=== PATIENT | female | born 2005 | race Caucasian/White ===

== ENCOUNTER 2024-03-30 10:55 | Emergency (ER) | payer OTHER ==
[2024-03-30 11:34] VITALS: TEMP 97.3
--- NOTE | 2024-03-30 11:46 | ERPHSYRPT ---
- History of Present Illness Time Seen by Provider: 03/30/24 11:22 Source: patient Exam Limitations: no limitations Patient Subjective Stated Complaint: "I was put on an iron supplement for my pregancy and blood levels. I started it last night and noticed today I have a ra sh and I've been itchy. My face is swollen too". Triage Nursing Assessment: Pt presents to ER with complaints of rash and swollen face after starting new medication, iron last night at 7pm. Pt noticed rash today at 7am. Pt is 33 weeks without any complications, denies taking prenatals. Pt is alert and oriented x 3. Skin is pink, warm, and slight redness under right breasts and spots on legs. Complains of itching all over. Pt respirations are easy and unlabored. Denies any futher concerns at this time. Physician History: 18 years old 1 para 0 at 33 weeks gestation with history of related anemia, started on ferrous sulfate presented in the ER with itching and burning sensation with rash all over started this morning when she woke up. Patient reports she took her ferrous sulfate last night. Denies any difficulty breathing. No throat closing sensation or choking sensation. Denies any abdominal/pelvic pain/cramping. movements as usual. She has taken 50 mg Benadryl at home with no significant relief. Allergies/Adverse Reactions: paroxetine [From Paxil] Allergy (Intermediate, Verified 03/30/24 11:25) Rash blueberry Allergy (Mild, Verified 03/30/24 11:25) iron Allergy (Mild, Verified 03/30/24 11:25) Rash Home Medications: Amoxicillin 875 mg PO BID 03/30/24 [History] Ferrous Sulfate [Ferosul] 325 mg PO DAILY 03/30/24 [History] Hx Tetanus, Diphtheria Vaccination/Date Given: No Hx Influenza Vaccination/Date Given: No Hx Pneumococcal Vaccination/Date Given: No Immunizations Up to Date: No Travel Risk - International Travel Have you traveled outside of the country in past 3 weeks: No - Emerging Infectious Disease Are you exhibiting symptoms associated with any current EIDs: No - Review of Systems Constitutional: No Symptoms Eyes: No Symptoms Ears, Nose, & Throat: No Symptoms Respiratory: No Symptoms Cardiac: No Symptoms Abdominal/Gastrointestinal: No Symptoms Genitourinary Symptoms: Musculoskeletal: No Symptoms Skin: Rash, Skin Lesions Neurological: No Symptoms Psychological: No Symptoms Endocrine: No Symptoms Immunological/Allergic: No Symptoms - Past Medical History Pertinent Past Medical History: No Neurological History: No Pertinent History ENT History: No Pertinent History Cardiac History: No Pertinent History Respiratory History: No Pertinent History Endocrine Medical History: No Pertinent History Musculoskeletal History: No Pertinent History GI Medical History: No Pertinent History History: No Pertinent History Psycho-Social History: No Pertinent History Female Reproductive Disorders: No Pertinent History - Past Surgical History Past Surgical History: Yes Neuro Surgical History: No Pertinent History Cardiac: No Pertinent History Respiratory: No Pertinent History Gastrointestinal: No Pertinent History Genitourinary: No Pertinent History Musculoskeletal: Orthopedic Surgery Female Surgical History: No Pertinent History Other Surgical History: wisdom teeth and carpal tunnel - Female History Hx Last Menstrual Period: 07/16/24 Hx Now: Yes Gestational Age: 33 weeks - Social History Smoking Status: Current every day smoker Exposure to second hand smoke: No Drug Use: none - Social Determinants of Health Will the patient participate in the screening: Yes Do you worry about a steady place to live?: No Do you have any problems with any of the following?: No known problems In the past 12 months,have you had to go without utilities?: No Transportation Issues: No Has anyone in your support network made you feel unsafe?: No Have you or anyone in your house had to go without enough: No - Nursing Vital Signs Nursing Vital Signs: Initial Vital Signs Temperature 97.3 F 03/30/24 11:26 Pulse Rate 106 H 03/30/24 11:26 Respiratory Rate 18 03/30/24 11:26 Blood Pressure 132/93 03/30/24 11:26 O2 Sat by Pulse Oximetry 97 03/30/24 11:26 Pain Scale Pain Intensity 0 - Physical Exam General Appearance: no apparent distress, alert Eye Exam: eyes nml inspection Ears, Nose, Throat Exam: normal ENT inspection Neck Exam: normal inspection, non-tender, supple, full range of motion Respiratory Exam: normal breath sounds, lungs clear Cardiovascular Exam: regular rate/rhythm, normal heart sounds Gastrointestinal/Abdomen Exam: soft, normal bowel sounds, other (Gravid uterus), No tenderness Extremity Exam: normal inspection, normal range of motion Neurologic Exam: alert, oriented x 3, cooperative, 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 Blanchable. Nontender.) SpO2 Interpretation: normal SpO2: 98 O2 Delivery: Room Air Ordered Tests: Medication Summary Discontinued Medications Generic Name Dose Route Start Last Admin Trade Name Constantino PRN Reason Stop Dose Admin Methylprednisolone Sodium 0 mg 03/30/24 11:26 03/30/24 12:19 Succinate 125 mg/ Sterile IV 03/30/24 11:27 125 mg Water 2 ml STAT ONE Administration Diphenhydramine HCl 25 mg 03/30/24 11:26 03/30/24 12:19 Diphenhydramine Hcl 50 Mg/Ml Vial IV 03/30/24 11:27 25 mg STAT ONE Administration Diphenhydramine HCl Confirm 03/30/24 12:18 Diphenhydramine Hcl 50 Mg/Ml Vial Administered 03/30/24 12:19 Dose 50 mg .ROUTE .STK-MED ONE Famotidine 20 mg 03/30/24 11:26 03/30/24 12:19 Famotidine 20 Mg/1 Vial IV 03/30/24 11:27 20 mg STAT ONE Administration Famotidine Confirm 03/30/24 12:18 Famotidine 20 Mg/1 Vial Administered 03/30/24 12:19 Dose 20 mg IV .STK-MED ONE Methylprednisolone Sodium Succinate Confirm 03/30/24 12:18 Methylprednis Sod Succ 125 Mg/2 Ml Vial Administered 03/30/24 12:19 Dose 125 mg .ROUTE .STK-MED ONE Sterile Water Confirm 03/30/24 12:17 Water For Injection,Sterile 10 Ml Vial Administered 03/30/24 12:18 Dose 10 ml IJ .STK-MED ONE Lab/Rad Data: Laboratory Result Diagrams 03/30/24 11:48 03/30/24 11:48 Laboratory Results 03/30/24 03/30/24 03/30/24 Range/Units 12:52 11:48 11:48 WBC 5.8 (3.98-10.04) x10^3/uL RBC 3.65 L (3.93-5.22) x10^6/uL Hgb 9.6 L (11.2-15.7) g/dL Hct 28.7 L (34.1-44.9) % MCV 78.6 L (79.4-94.8) fL MCH 26.3 (25.6-32.2) pg MCHC 33.4 (32.2-35.5) g/dL RDW 12.0 (11.7-14.4) % Plt Count 249 (182-369) x10^3/uL MPV 8.9 L (9.4-12.3) fL Gran % 63.0 (34.0-71.1) % Immature Gran % (Auto) 0.5 H (0.001-0.429) % Nucleat RBC Rel Count 0.0 (0.00-0.2) % Eos # (Auto) 0.04 (0.04-0.36) x10^3/uL Immature Gran # (Auto) 0.03 (0.001-0.031) x10^3u/L Absolute Lymphs (auto) 1.47 (1.18-3.74) x10^3/uL Absolute Monos (auto) 0.61 (0.24-0.86) x10^3/uL Absolute Nucleated RBC 0.00 (0.00-0.012) x10^3u/L Lymphocytes % 25.2 (19.3-51.7) % Monocytes % 10.4 (4.7-12.5) % Eosinophils % 0.7 (0.7-5.8) % Basophils % 0.2 (0.1-1.2) % Absolute Granulocytes 3.68 (1.56-6.13) x10^3/uL Basophils # 0.01 (0.01-0.08) x10^3/uL Sodium 136 (135-145) mmol/L Potassium 3.6 (3.5-5.1) mmol/L Chloride 107 (98-107) mmol/L Carbon Dioxide 22 (22-30) mmol/L Anion Gap 10.2 (5-15) MEQ/L BUN 7 (7-17) mg/dL Creatinine 0.49 L (0.52-1.04) mg/dL Estimated GFR 138.3 ML/MIN Glucose 81 (74-106) mg/dL Uric Acid 4.3 (2.6-6.0) mg/dL Calcium 9.2 (8.4-10.2) mg/dL Total Bilirubin 0.30 (0.2-1.3) mg/dL AST 28 (14-36) U/L ALT 28 (0-35) U/L Alkaline Phosphatase 121 (38-126) U/L Serum Total Protein 6.6 (6.3-8.2) g/dL Albumin 3.4 L (3.5-5.0) g/dL Urine Color Yellow (Yellow) Urine Appearance Cloudy A (Clear) Urine pH 7.0 (4.6-8.0) Ur Specific [place] 1.010 (1.005-1.030) Urine Protein Negative (Negative) Urine Glucose (UA) Negative (Negative) mg/dL Urine Ketones Negative (Negative) Urine Blood Negative (Negative) Urine Nitrite Negative (Negative) Urine Bilirubin Negative (Negative) Urine Urobilinogen 1.0 A (0.2) mg/dL Ur Leukocyte Esterase Trace A (Negative) Urine Microscopic RBC NONE (0-5) /HPF Urine Microscopic WBC 3-5 (0-5) /HPF Ur Epithelial Cells Many A (None Seen) /HPF Urine Bacteria Rare A (None Seen) /HPF Urine Culture Reflexed NO (NO) - Progress Progress: improved, re-examined Progress Note: 03/30/24 14:02 18 years old 1 para 0 at 33 weeks is evaluated for rash/itching/allergic reaction after taking ferrous sulfate. Patient has no difficulty breathing, clear lungs to auscultation. Normal oropharynx/tongue swelling/floor of mouth swelling. She is given Solu-Medrol Benadryl and Pepcid along with fluid, on reevaluations her rash is resolved. I have obtained her baseline labs with normal white count, fairly unremarkable chemistries and no definite UTI. Patient blood pressure was borderline elevated but has no other objective findings of preeclampsia, on reevaluation blood pressure is improved in 110s and 120s. I recommended stopping ferrous sulfate and discussed with her OB . We will give her Benadryl and Pepcid to go home and outpatient follow-up recommended. Discussed signs symptoms of worsening needing return to ER which she seems understanding. Stable for discharge. heart tones 148 03/30/24 14:04 Counseled pt/family regarding: lab results, diagnosis, need for follow-up Medical Desision Making - Independent Historian Additional History obtained from: Mother - Diagnostic Testing Diagnostic test were ordered, analyzed, and reviewed by me: Yes - Risk of complications The pt has a mod risk of morbidity or mortality based on: Need for prescription drug management - Departure Departure Disposition: Home Clinical Impression: Allergic reaction, Condition: Stable Critical Care Time: No Referrals: SHANNAN RAM MD [Primary Care Provider] - Follow up with PCP 1 day BRENDA FROST [NON-STAFF PHY W/O PRIVILEGES] - Follow up other (For appointment) Instructions: Leann Additional Instructions: Follow-up with primary care/primary OB for reevaluation. Take Benadryl/Pepcid as needed. Return to ER for worsening rash or if having difficulty breathing, choking sensation, feeling dizzy lightheaded etc.
[2024-03-30 11:53] LABS: Absolute Neutrophil Ct (ANC) 3.68 x10^3/uL (1.56-6.13); BASOPHIL % 0.2 % (0.1-1.2); Basophil (Absolute #) 0.01 x10^3/uL (0.01-0.08); Eosinophil % 0.7 % (0.7-5.8); Eosinophil (Absolute #) 0.04 x10^3/uL (0.04-0.36); Hematocrit 28.7 % (34.1-44.9); Hemoglobin 9.6 g/dL (11.2-15.7); IMMATURE GRAN # 0.03 x10^3u/L (0.001-0.031); IMMATURE GRAN % 0.5 % (0.001-0.429); Lymphocyte (Absolute #) 1.47 x10^3/uL (1.18-3.74); Lymphocytes % 25.2 % (19.3-51.7); Mean Cell Volume 78.6 fL (79.4-94.8); Mean Corpuscular Hemoglobin 26.3 pg (25.6-32.2); Mean Corpuscular Hgb Concent. 33.4 g/dL (32.2-35.5); Mean Platelet Volume 8.9 fL (9.4-12.3); Monocyte (Absolute #) 0.61 x10^3/uL (0.24-0.86); Monocytes % 10.4 % (4.7-12.5); Platelet Count 249 x10^3/uL (182-369); Red Blood Count 3.65 x10^6/uL (3.93-5.22); White Blood Count 5.8 x10^3/uL (3.98-10.04)
[2024-03-30 12:09] LABS: ALBUMIN 3.4 g/dL (3.5-5.0); ANION GAP 10.2 MEQ/L (5-15); BILIRUBIN,TOTAL 0.3 mg/dL (0.2-1.3); Calcium 9.2 mg/dL (8.4-10.2); Creatinine 1 0.49 mg/dL (0.52-1.04); EST GLOMERULAR FILTRATION RATE 138.3 ML/MIN; Potassium 3.6 mmol/L (3.5-5.1); Total Protein 6.6 g/dL (6.3-8.2); Uric Acid 4.3 mg/dL (2.6-6.0)
[2024-03-30] MEDS ORDERED: Sterile H2O 10 ml IJ ONE (12:17)
[2024-03-30] MEDS ORDERED: BENADRYL 50 MG/ML ONE (12:18)
[2024-03-30] MEDS ORDERED: solu-MEDROL ONE (12:18)
[2024-03-30] MEDS ORDERED: Pepcid 20 MG VIAL IV ONE (12:18)
[2024-03-30] MEDS: BENADRYL 50 MG/ML IV ONE (12:19)
[2024-03-30] MEDS: Pepcid 20 MG VIAL IV ONE (12:19)
[2024-03-30] MEDS: solu-MEDROL 125 MG, Sterile H2O 10 ml 2 ML IV ONE (12:19)
[2024-03-30 12:27] VITALS: RESP 16
[2024-03-30 13:10] LABS: Appearance Cloudy (Clear); Bilirubin Negative (Negative); Blood Negative (Negative); Glucose, Urine Negative (Negative); Ketones Negative (Negative); Leukocyte Esterase Trace (Negative); Nitrite Negative (Negative); Protein,Urine Dip Negative (Negative)
[2024-03-30 13:12] VITALS: BP 120/79; PULSE 88
[2024-03-30 13:27] LABS: ADD URINE CULTURE? NO (NO); Bacteria Rare /HPF (None Seen); Epithelial Cells Many /HPF (None Seen)
[2024-03-30 14:07] VITALS: O2SAT 98
== END 2024-03-30 14:19 | disposition home or self-care (01) ==
LOC: ED 10:55
DX: O9A.213 Injury, poisoning and certain other consequences of external causes complicating pregnancy, third trimester (principal); L27.0 Generalized skin eruption due to drugs and medicaments taken internally; T45.4X5A Adverse effect of iron and its compounds, initial encounter; Z3A.33 33 weeks gestation of pregnancy; Z79.899 Other long term (current) drug therapy; Z72.0 Tobacco use
CPT/HCPCS: 36000; 36415; 80053; 81001; 84550; 85025; 96374; 96375; 99284; J1200; J2919

== ENCOUNTER 2024-11-16 23:25 | Emergency (ER) | payer OTHER ==
[2024-11-16 23:35] VITALS: BP 146/86; RESP 18; TEMP 97.6; O2SAT 99
--- NOTE | 2024-11-16 23:50 | ERPHSYRPT ---
- History of Present Illness Source: patient Exam Limitations: no limitations Patient Subjective Stated Complaint: mouth pain Triage Nursing Assessment: patient states had gengivitis test wednesday and since then your mouth has beeen in pain but this last few hours its getting progressively worse. Physician History: Patient has pain in her gums. She recently underwent a gingivitis test where they put some probes up by her gums. I wonder if they might have introduced some infection. She is not have any fever or chills. The symptoms of gotten generally and gradually worse over the last 2 to 3 days. She has no other complaints at this time. There is no edema. There is no trismus or Ludewig's angina or anything like that it is in her upper gums around her middle teeth. Allergies/Adverse Reactions: paroxetine [From Paxil] Allergy (Intermediate, Verified 03/30/24 11:25) Rash blueberry Allergy (Mild, Verified 03/30/24 11:25) iron Allergy (Mild, Verified 03/30/24 11:25) Rash Hx Tetanus, Diphtheria Vaccination/Date Given: No Hx Influenza Vaccination/Date Given: No Hx Pneumococcal Vaccination/Date Given: No Travel Risk - International Travel Have you traveled outside of the country in past 3 weeks: No - Emerging Infectious Disease Are you exhibiting symptoms associated with any current EIDs: No - Review of Systems Constitutional: No Symptoms Eyes: No Symptoms Respiratory: No Symptoms - Past Medical History Pertinent Past Medical History: No Neurological History: No Pertinent History ENT History: No Pertinent History Cardiac History: No Pertinent History Respiratory History: No Pertinent History Endocrine Medical History: No Pertinent History Musculoskeletal History: No Pertinent History GI Medical History: No Pertinent History History: No Pertinent History Psycho-Social History: No Pertinent History Female Reproductive Disorders: No Pertinent History - Past Surgical History Past Surgical History: Yes Neuro Surgical History: No Pertinent History Cardiac: No Pertinent History Respiratory: No Pertinent History Gastrointestinal: No Pertinent History Genitourinary: No Pertinent History Musculoskeletal: Orthopedic Surgery Female Surgical History: No Pertinent History Other Surgical History: wisdom teeth and carpal tunnel - Female History Hx Last Menstrual Period: 10/2024 Hx Now: No - Social History Smoking Status: Never smoker Drug Use: none - Social Determinants of Health Will the patient participate in the screening: Yes Do you worry about a steady place to live?: No Do you have any problems with any of the following?: No known problems In the past 12 months,have you had to go without utilities?: No Transportation Issues: No Has anyone in your support network made you feel unsafe?: No Have you or anyone in your house had to go w/o enough food: No - Nursing Vital Signs Nursing Vital Signs: Initial Vital Signs Temperature 97.6 F 11/16/24 23:26 Pulse Rate 81 11/16/24 23:26 Respiratory Rate 18 11/16/24 23:26 Blood Pressure 146/86 11/16/24 23:26 O2 Sat by Pulse Oximetry 99 11/16/24 23:26 Pain Scale Pain Intensity 9 - Physical Exam General Appearance: no apparent distress Eye Exam: bilateral eye: normal inspection, PERRL, EOMI Ear Exam: bilateral ear: auricle normal, canal normal, TM normal Nasal Exam: normal inspection Throat Exam: normal Neck Exam: normal inspection SpO2: 99 - Progress Progress Note: Patient was stable throughout stay. I went to treat her for gingivitis and we will give her clindamycin. I am also going to give her a couple [place] to take home. She is also to ice the area. 11/16/24 23:46 - Departure Departure Disposition: Home Clinical Impression: Gingivitis Condition: Stable Critical Care Time: No Referrals: SHANNAN RAM MD [Primary Care Provider] - Follow up/PCP as directed Instructions: Gingivitis (DC)
[2024-11-16] MEDS ORDERED: NORCO 5/325 MG ONE (23:52)
[2024-11-16] MEDS ORDERED: CLEOCIN 150 MG CAPSULE ONE (23:52)
[2024-11-16] MEDS: CLEOCIN 150 MG CAPSULE PO ONE (23:56)
[2024-11-16] MEDS: NORCO 5/325 MG PO ONE (23:56)
[2024-11-16 23:58] VITALS: PULSE 82
== END 2024-11-16 23:59 | disposition home or self-care (01) ==
LOC: ED 23:25
DX: K05.10 Chronic gingivitis, plaque induced (principal)
CPT/HCPCS: 99282; 99283; A9270-GY

== ENCOUNTER 2024-11-18 14:26 | Emergency (ER) | payer OTHER ==
--- NOTE | 2024-11-18 15:02 | ERPHSYRPT ---
- History of Present Illness Time Seen by Provider: 11/18/24 14:58 Source: patient Physician History: c/o mouth pain. for 3-4 days Patient is 19-year-old female came to the emergency room with severe mouth pain especially related to her lower teeth on the right side patient was seen in ER 2 to 3 days ago and at that time she was given an antibiotic shot and clindamycin was started which patient just started today. Patient was recently seen by dentist and was diagnosed with gingivitis. Timing/Duration: day(s) (3-4 days) Associated Symptoms: denies symptoms Allergies/Adverse Reactions: paroxetine [From Paxil] Allergy (Intermediate, Verified 03/30/24 11:25) Rash blueberry Allergy (Mild, Verified 03/30/24 11:25) iron Allergy (Mild, Verified 03/30/24 11:25) Rash Hx Tetanus, Diphtheria Vaccination/Date Given: No Hx Influenza Vaccination/Date Given: No Hx Pneumococcal Vaccination/Date Given: No Travel Risk - Emerging Infectious Disease Are you exhibiting symptoms associated with any current EIDs: No - Review of Systems Constitutional: No Symptoms Eyes: No Symptoms Ears, Nose, & Throat: Mouth Pain, Mouth Swelling Respiratory: No Symptoms Cardiac: No Symptoms Abdominal/Gastrointestinal: No Symptoms Genitourinary Symptoms: No Symptoms Musculoskeletal: No Symptoms Skin: No Symptoms Neurological: No Symptoms Psychological: No Symptoms Endocrine: No Symptoms Hematologic/Lymphatic: No Symptoms - Past Medical History Pertinent Past Medical History: No Neurological History: No Pertinent History ENT History: No Pertinent History Cardiac History: No Pertinent History Respiratory History: No Pertinent History Endocrine Medical History: No Pertinent History Musculoskeletal History: No Pertinent History GI Medical History: No Pertinent History History: No Pertinent History Psycho-Social History: No Pertinent History Female Reproductive Disorders: No Pertinent History - Past Surgical History Past Surgical History: Yes Neuro Surgical History: No Pertinent History Cardiac: No Pertinent History Respiratory: No Pertinent History Gastrointestinal: No Pertinent History Genitourinary: No Pertinent History Musculoskeletal: Orthopedic Surgery Female Surgical History: No Pertinent History Other Surgical History: wisdom teeth and carpal tunnel - Female History Hx Last Menstrual Period: 10/2024 - Social History Smoking Status: Never smoker Drug Use: none - Social Determinants of Health Will the patient participate in the screening: Yes Do you worry about a steady place to live?: No In the past 12 months,have you had to go without utilities?: No Transportation Issues: No Has anyone in your support network made you feel unsafe?: No Have you or anyone in your house had to go w/o enough food: No - Physical Exam General Appearance: no apparent distress Eye Exam: PERRL/EOMI Ears, Nose, Throat Exam: normal ENT inspection Neck Exam: normal inspection Respiratory Exam: normal breath sounds Cardiovascular Exam: regular rate/rhythm Extremity Exam: normal inspection Neurologic Exam: alert, oriented x 3 Skin Exam: normal color SpO2 Interpretation: normal O2 Delivery: Room Air - Course Nursing assessment & vital signs reviewed: Yes - Progress Progress: improved, pain not gone completely Counseled pt/family regarding: diagnosis, need for follow-up Medical Desision Making - Diagnostic Testing Diagnostic test were ordered, analyzed, and reviewed by me: No - Risk of complications Minimal Risk: Minimal risk of morbidity - Departure Departure Disposition: Home Clinical Impression: Gingivitis, Abscess, dental Condition: Stable Critical Care Time: No Referrals: SHANNAN RAM MD [Primary Care Provider] - Follow up/PCP as directed Instructions: Trench Mouth, Gingivitis (DC) Additional Instructions: Discharge/Care Plan XENIA STRATTON was seen on 11/18/24 in the Emergency Room. The patient was counseled regarding Diagnosis,Lab results, Imaging studies, need for follow up and when to return to the Emergency Room. Prescriptions given: Discharge Note I have spoken with the patient and/or caregivers. I have explained the patient's condition, diagnosis and treatment plan based on the information available to me at this time. I have answered the patient's and/or caregiver's questions and addressed any concerns. The patient and/or caregivers have as good understanding of the patient's diagnosis, condition and treatment plan as can be expected at this point. The vital signs have been stable. The patient's condition is stable and appropriate for discharge from the emergency department. The patient will pursue further outpatient evaluation with the primary care physician or other designated or consulting physician as outlined in the discharge instructions. The patient and/or caregivers are agreeable to this plan of care and follow-up instructions have been explained in detail. The patient and/or caregivers have received these instruction. The patient/and or caregivers are aware that any significant change in condition or worsening of symptoms should prompt an immediate return to this or the closest emergency department or call 911. XENIA STRATTON was seen on 11/18/24 n the Emergency Room. At that time you were treated for an emergent condition, during your visit Laboratory, Radiology and/or other procedures may have been ordered. It is very important that you follow-up with your Primary Care Physician SHANNAN RAM within the next 24-48 hours to review your Emergency Room visit and the final results of testing that was ordered. Some test results such as Urine Cultures, Blood Cultures, and other cultures if ordered will not be finalized for 24-48 hours. If you do not have a Primary Care Provider please call the medical records department at [phone] to obtain a copy of your results or you may sign into our patient portal to obtain these results by visiting us @ [email or web address] and completing the following steps: 1. Click on the Patient Portal link 2. Click the Patient Self Enrollment Link to complete the enrollment form and entering your 3. Once the enrollment form is completed you will receive an email with a temporary ID and password at the email address you provided. 4. Next choose a user name and password. Your user name must be at least 4 characters long and your password must be at least 4 characters long. 5. Choose a security question from the list and provide your answer to the question. If you already have signed into the Health Portal you may access your Health Care Information 08/03 by the following steps: 1. Login to our website @ [email or web address] 2. Enter your original user name and password. FAQS The [facility] Health Portal is an online tool that contains your Lab Results, Radiology Reports, Visit History, Discharge Instructions and Health Summary Lab and Radiology Results will not be available for 72 hours on the portal. The Portal is a secure site, passwords are encryted and URLs are re-written so they cannot be copied and pasted. You and authorized family members are the only ones who can access your Portal. Also there is a timeout feature that protects your information if you leave the Portal page open. If you have technical difficulty please use the Contact Us link on the page this will allow you to submit any questions you have regarding the Portal or you may contact the Medical Record Department at [phone] ext [phone]. Prescriptions: Oxycodone / APAP 10/325 mg [Oxycodone-Acetaminophen 10-325] 1 tab PO Q6H #15 tablet MDD 4
[2024-11-18 15:05] VITALS: RESP 18; TEMP 98.4; O2SAT 99
[2024-11-18] MEDS ORDERED: TORAdol 30 mg Injection ONE (15:11)
[2024-11-18] MEDS: TORAdol 30 mg Injection IM ONE (15:13)
[2024-11-18 15:44] VITALS: BP 129/86; PULSE 79
== END 2024-11-18 15:44 | disposition home or self-care (01) ==
LOC: ED 14:26
DX: K05.10 Chronic gingivitis, plaque induced (principal); K04.7 Periapical abscess without sinus; K08.89 Other specified disorders of teeth and supporting structures; Z79.891 Long term (current) use of opiate analgesic
CPT/HCPCS: 96372; 99282; 99283; J1885

== ENCOUNTER 2025-06-27 22:23 | Emergency (ER) | payer OTHER ==
[2025-06-27 23:09] VITALS: TEMP 97.9
--- NOTE | 2025-06-28 00:04 | ERPHSYRPT ---
- History of Present Illness Time Seen by Provider: 06/28/25 00:01 Source: patient Exam Limitations: no limitations Patient Subjective Stated Complaint: right ear pain, fever Triage Nursing Assessment: Pt ambulated into ER without diff. Pt c/o tinnitus in her ear x2 weeks and an rt ear infection and fever. Pt continues to c/o tinnitus in rt ear and rt ear pain and rt ear tenderness behind her rt ear. Ear wax noted to rt ear on exam. Physician History: 20-year-old female no significant past medical history presents to our ED for evaluation of mastoid tenderness and fever at home. Patient currently afebrile but states she took Tylenol prior to arrival. Patient has yet to follow-up with a primary care doctor. No trauma. No dizziness or change in hearing acuity. Patient otherwise feels well. She voices no other complaints or concerns at this time. Patient reports that she was treated with antibiotics and steroids by [facility]. However patient reports that this did not significantly improve her symptomology Portions of this note were created with voice recognition technology. There may be grammatical, spelling, punctuation or sound alike errors Timing/Duration: today Severity: moderate Modifying Factors: Improves With: nothing Associated Symptoms: denies symptoms Allergies/Adverse Reactions: paroxetine [From Paxil] Allergy (Intermediate, Verified 06/27/25 23:20) Rash blueberry Allergy (Mild, Verified 06/27/25 23:20) iron Allergy (Mild, Verified 06/27/25 23:20) Rash Hx Tetanus, Diphtheria Vaccination/Date Given: Yes Hx Influenza Vaccination/Date Given: No Hx Pneumococcal Vaccination/Date Given: No Travel Risk - International Travel Have you traveled outside of the country in past 3 weeks: No - Emerging Infectious Disease Are you exhibiting symptoms associated with any current EIDs: No - Review of Systems All Other Systems: Reviewed and Negative - Past Medical History Pertinent Past Medical History: Yes Neurological History: No Pertinent History ENT History: No Pertinent History Cardiac History: No Pertinent History Respiratory History: No Pertinent History Endocrine Medical History: No Pertinent History Musculoskeletal History: Other GI Medical History: No Pertinent History History: No Pertinent History Psycho-Social History: No Pertinent History Female Reproductive Disorders: No Pertinent History 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 - Past Surgical History Past Surgical History: Yes Neuro Surgical History: No Pertinent History Cardiac: No Pertinent History Respiratory: No Pertinent History Gastrointestinal: No Pertinent History Genitourinary: No Pertinent History Musculoskeletal: Orthopedic Surgery Female Surgical History: Section Other Surgical History: wisdom teeth and carpal tunnel - Female History Hx Last Menstrual Period: 06/10/25 Hx Now: No - Social History Smoking Status: Current every day smoker Exposure to second hand smoke: Yes Drug Use: none - Social Determinants of Health Will the patient participate in the screening: Yes Do you worry about a steady place to live?: No Do you have any problems with any of the following?: No known problems In the past 12 months,have you had to go without utilities?: No Transportation Issues: No Has anyone in your support network made you feel unsafe?: No Have you or anyone in your house had to go w/o enough food: No - Nursing Vital Signs Nursing Vital Signs: Initial Vital Signs Temperature 97.9 F 06/27/25 23:06 Pulse Rate 73 06/27/25 23:06 Respiratory Rate 17 06/27/25 23:06 Blood Pressure 110/79 06/27/25 23:06 O2 Sat by Pulse Oximetry 98 06/27/25 23:06 Pain Scale Pain Intensity 8 - Physical Exam General Appearance: no apparent distress, alert Eye Exam: PERRL/EOMI, eyes nml inspection Ears, Nose, Throat Exam: normal ENT inspection, moist mucous membranes Neck Exam: normal inspection, full range of motion Respiratory Exam: normal breath sounds, lungs clear, airway intact, No respiratory distress Cardiovascular Exam: regular rate/rhythm, normal heart sounds, normal peripheral pulses Gastrointestinal/Abdomen Exam: soft, normal bowel sounds, No tenderness, No mass Back Exam: normal inspection, normal range of motion, No CVA tenderness, No vertebral tenderness Extremity Exam: normal inspection, normal range of motion, pelvis stable Neurologic Exam: alert, oriented x 3, cooperative, normal mood/affect, sensation nml, No motor deficits Skin Exam: normal color, warm, dry, No rash Lymphatic Exam: No adenopathy SpO2 Interpretation: normal SpO2: 98 O2 Delivery: Room Air - Course Nursing assessment & vital signs reviewed: Yes - CT Exams Other CT Interpretation: Tele-radiologist Report (Mild left sided nasal septum deviation.) Ordered Tests: Active Orders 24 hr Category Date Time Status SINUSES WITHOUT CONTRAST [CT] Stat Exams 06/28/25 00:19 Completed HCG QUALITATIVE, URINE Stat Lab 06/28/25 00:17 Completed UA W/RFX UR CULTURE Stat Lab 06/28/25 00:08 Completed Medication Summary Discontinued Medications Generic Name Dose Route Start Last Admin Trade Name Constantino TAPIA Reason Stop Dose Admin Ibuprofen 600 mg 06/27/25 23:59 06/28/25 00:05 Ibuprofen 600 Mg Tablet PO 06/28/25 00:00 600 mg STAT ONE Administration Ibuprofen Confirm 06/28/25 00:05 Ibuprofen 600 Mg Tablet Administered 06/28/25 00:06 Dose 600 mg .[address]OUTE .[facility] Lab/Rad Data: Laboratory Results 06/28/25 06/28/25 Range/Units 00:17 00:08 Urine Color Yellow (Yellow) Urine Appearance Clear (Clear) Urine pH 6.5 (4.6-8.0) Ur Specific [place] >=1.030 A (1.005-1.030) Urine Protein Trace A (Negative) Urine Glucose (UA) Negative (Negative) mg/dL Urine Ketones Trace A (Negative) Urine Blood Negative (Negative) Urine Nitrite Negative (Negative) Urine Bilirubin Negative (Negative) Urine Urobilinogen 1.0 A (0.2) mg/dL Ur Leukocyte Esterase Negative (Negative) U Hyaline Cast (Auto) NONE SEEN (0-2) /LPF Urine Microscopic RBC 0-2 (0-5) /HPF Urine Microscopic WBC 3-5 (0-5) /HPF Ur Epithelial Cells Moderate A (None Seen) /HPF Urine Bacteria Few A (None Seen) /HPF Urine Culture Reflexed NO (NO) Urine HCG, Qual NEGATIVE (NEGATIVE) - Progress Progress: improved Progress Note: 06/28/25 02:11 20-year-old female no significant past medical history presents to our ED for evaluation of mastoid tenderness and fever at home. Patient currently afebrile but states she took Tylenol prior to arrival. Patient has yet to follow-up with a primary care doctor. No trauma. No dizziness or change in hearing acuity. Physical exam reveals tenderness to palpation right mastoid. CT scan negative for acute pathology. Patient afebrile. We discussed the need for antibiotics. Patient just completed a course of antibiotics with no significant improvement. We decided to hold off on antibiotics at this time as there is no obvious signs of infection. Patient will be following up with ENT within a week. History obtained from patient. Differential diagnosis includes mastoid contusion, mastoiditis, trauma Complexity of problems addressed is moderate acute complicated. No critical care time. Complexity of data reviewed and analyzed is moderate. Test ordered chest reviewed results analyzed and correlated clinically with history and physical exam. Risk of complication and or risk of morbidity/mortality of patient management is low. Vital stable. Time spent to discharge patient approximately 15 minutes. Plan of care established for shared decision making. No social determinants of health present to impede follow-up. Portions of this note were created with voice recognition technology. There may be grammatical, spelling, punctuation or sound alike errors 06/28/25 02:19 Counseled pt/family regarding: diagnosis, need for follow-up, rad results - Departure Departure Disposition: Home Clinical Impression: Mastoid tenderness Condition: Stable Critical Care Time: No Referrals: SHANNAN RAM MD [Primary Care Provider, [facility]] - Follow up/PCP as directed Additional Instructions: Discharge/Care Plan XENIA STRATTON was seen on 06/28/25 in the Emergency Room. The patient was counseled regarding Diagnosis,Lab results, Imaging studies, need for follow up and when to return to the Emergency Room. Prescriptions given: Discharge Note I have spoken with the patient and/or caregivers. I have explained the patient's condition, diagnosis and treatment plan based on the information available to me at this time. I have answered the patient's and/or caregiver's questions and addressed any concerns. The patient and/or caregivers have as good understanding of the patient's diagnosis, condition and treatment plan as can be expected at this point. The vital signs have been stable. The patient's condition is stable and appropriate for discharge from the emergency department. The patient will pursue further outpatient evaluation with the primary care physician or other designated or consulting physician as outlined in the discharge instructions. The patient and/or caregivers are agreeable to this plan of care and follow-up instructions have been explained in detail. The patient and/or caregivers have received these instruction. The patient/and or caregivers are aware that any significant change in condition or worsening of symptoms should prompt an immediate return to this or the closest emergency department or call 911.
[2025-06-28] MEDS: MOTRIN 600 MG PO ONE (00:05)
[2025-06-28] MEDS ORDERED: MOTRIN 600 MG ONE (00:05)
[2025-06-28 00:28] LABS: HCG URINE TEST NEGATIVE (NEGATIVE)
[2025-06-28 00:29] LABS: Glucose, Urine Negative (Negative); Protein,Urine Dip Trace (Negative); RBC 0-2 /HPF (0-5)
[2025-06-28 01:03] VITALS: PULSE 84
--- NOTE | 2025-06-28 01:45 | XRAY ---
CLINICAL HISTORY: Right mastoid pain COMPARISON: NONE. TECHNIQUE: Computed tomography of the orbits/face was performed without intravenous contrast. Contiguous axial images were obtained. Reformatted coronal and sagittal images were also reviewed. CT scan was performed according to ALARA (as low as reasonably achievable). FINDINGS: Mild left sided nasal septum deviation. No acute facial fractures. The paranasal sinuses and mastoid air cells are clear. The globes, optic nerves, extraocular muscles and retro-orbital fat are grossly unremarkable. Reformatted imaging demonstrates intact roof and floor of the orbits. Included portions of the mandible are intact. The included intracranial substances and airway are unremarkable. IMPRESSION: Mild left sided nasal septum deviation. The paranasal sinuses and mastoid air cells are clear. Electronically Signed by: Neto Lee MD. (06/28/2025 01:45:01 EST)
[2025-06-28 02:12] VITALS: BP 123/75; RESP 16
[2025-06-28 02:16] VITALS: O2SAT 98
== END 2025-06-28 02:35 | disposition home or self-care (01) ==
LOC: ED 22:23
DX: H92.01 Otalgia, right ear (principal); R50.9 Fever, unspecified; Z72.0 Tobacco use